=== PATIENT | male | born 1985 | race Caucasian/White ===

== ENCOUNTER 2018-12-18 17:38 | Inpatient (IN) | payer BC ==
[2018-12-18] MEDS ORDERED: Ertapenem 1 GM in Sodium Chloride 0.9% 50 ML IV STA (19:51)
--- NOTE | 2018-12-18 19:51 | EDM.PDOC ---
ED HPI GENERAL MEDICAL PROBLEM - General Chief Complaint: Gastrointestinal Problem Stated Complaint: SKIN COMPLAINT/BUTTOCKS Time Seen by Provider: 12/18/18 19:01 Source of Information: Reports: Patient History Limitations: Reports: No Limitations - History of Present Illness INITIAL COMMENTS - FREE TEXT/NARRATIVE: Mr. Lopez is a most pleasant 33-year-old man with no significant past medical history, who states that he developed watery diarrhea, left-sided abdominal pain , and right flank pain about 7 weeks ago, ending about 4 weeks ago. He saw his PCP who ordered a CT scan of his abdomen and pelvis, along with blood work, stool studies, and urine studies. According to the patient, everything returned negative - there was no diverticulitis - except for the patient's WBC count, which returned at 40,000, however, the patient had received a steroid injection for back pain not long prior. The patient was started on antibiotics, and his symptoms resolved. A subsequent the WBC count was 14,000. At around that time, 3 weeks ago, the patient noticed a painless, nontender lump in his rectum. He states that he saw his PCP within a day or so of noticing the lump. He is not sure what the diagnosis was, but he states that his PCP told him that it would go away. About 4 days ago, the lump became painful and tender. The patient has not noticed any blood or pus in his underwear. He has not had a fever or chills, although he has had occasional body aches. He states that he saw his PCP again this past 12/15/2018. He states that his PCP referred him to Dr. Arreola for a colonoscopy or sigmoidoscopy. The patient states he has an appointment to see Dr. Arreola on 01/06/2019. The patient states that his pain has become progressively worse, to the point that he simply cannot wait until 01/06/2019, therefore he came to the ED. The patient has not previously undergone an EGD or colonoscopy. The patient's last solid food was around noon today. The patient's PCP is Dr. Valerio Lopez. Anus Pain Score (Numeric/FACES): 5 - Related Data Allergies Allergy/AdvReac Type Severity Reaction Status Date / Time No Known Allergies Allergy Verified 12/18/18 18:20 Home Meds: Home Meds . [No Known Home Meds] 12/18/18 [History] Past Medical History Genitourinary History: Reports: Urinary Incontinence (Spastic bladder), Other ( See Below) (Hemorrhoids) Endocrine/Metabolic History: Reports: Obesity/BMI 30+ - Past Surgical History HEENT Surgical History: Reports: Myringotomy w Tube(s) (bilateral), Oral Surgery (wisdom teeth extractions) GI Surgical History: Reports: Hernia, Inguinal (right), Other (See Below) ( Hemorrhoid banding/removal) Musculoskeletal Surgical History: Reports: ORIF (Left hand. 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 ED EXAM, GI/ABD - Physical Exam Exam: See Below Exam Limited By: No Limitations General Appearance: Alert, WD/WN, No Apparent Distress Eyes: Bilateral: Normal Appearance, EOMI Ears: Normal External Exam, Hearing Grossly Normal Nose: Normal Inspection Throat/Mouth: Normal Inspection, Normal Lips, Normal Voice, No Airway Compromise Head: Atraumatic, Normocephalic Neck: Normal Inspection, Full Range of Motion Respiratory/Chest: No Respiratory Distress, No Accessory Muscle Use, Rhonchi, Wheezing (faint expiratory) Cardiovascular: Normal Peripheral Pulses, Regular Rate, Rhythm, No Gallop, No JVD, No Murmur, No Rub GI/Abdominal Exam: Normal Bowel Sounds, Soft, No Organomegaly, No Distention, No Abnormal Bruit, No Mass, Tender (Mild, primarily in the left lower quadrant, but also on the right lower quadrant and epigastric area) (Male) Exam: Deferred Rectal (Males) Exam: Perirectal Abscess (left) Back Exam: Normal Inspection, Full Range of Motion. No: CVA Tenderness (L), CVA Tenderness (R) Extremities: Normal Inspection, Normal Range of Motion, No Pedal Edema, Normal Capillary Refill Neurological: Alert, Oriented, Normal Cognition, No Motor/Sensory Deficits Psychiatric: Normal Affect Skin Exam: Warm, Dry, Intact, Normal Color, No Rash Course - Vital Signs Last Recorded V/S: Last Vital Signs Temp 36.9 C 12/18/18 18:16 Pulse 97 12/18/18 18:16 Resp 18 12/18/18 18:16 BP 166/92 H 12/18/18 18:16 Pulse Ox 100 12/18/18 18:16 - Orders/Labs/Meds Orders: Active Orders 24 hr Category Date Time Status Lactated Ringers [Ringers, Lactated] 1,000 ml Med 12/18/18 20:00 Active IV ASDIRECTED Medication Orders Lactated Ringer's (Ringers, Lactated) 1,000 mls @ 100 mls/hr IV ASDIRECTED SYED Last Admin: 12/18/18 20:45 Dose: 100 mls/hr Labs: Laboratory Tests 12/18/18 12/18/18 Range/Units 19:56 19:56 WBC 14.06 H (4.23-9.07) K/mm3 RBC 4.92 (4.63-6.08) M/mm3 Hgb 15.0 (13.7-17.5) gm/dl Hct 43.9 (40.1-51.0) % MCV 89.2 (79.0-92.2) fl MCH 30.5 (25.7-32.2) pg MCHC 34.2 (32.2-35.5) g/dl RDW Std Deviation 41.9 (35.1-43.9) fL Plt Count 244 (163-337) K/mm3 MPV 10.1 (9.4-12.3) fl Neutrophils % (Manual) 72 H (40-60) % Band Neutrophils % 0 (0-10) % Lymphocytes % (Manual) 19 L (20-40) % Atypical Lymphs % 0 % Monocytes % (Manual) 5 (2-10) % Eosinophils % (Manual) 4 (0.8-7.0) % Basophils % (Manual) 0 L (0.2-1.2) Platelet Estimate Adequate RBC Morph Comment Normal Sodium 139 (136-145) mEq/L Potassium 3.9 (3.5-5.1) mEq/L Chloride 105 (98-107) mEq/L Carbon Dioxide 25 (21-32) mEq/L Anion Gap 12.9 (5-15) BUN 17 (7-18) mg/dL Creatinine 0.9 (0.7-1.3) mg/dL Est Cr Clr Drug Dosing 127.33 mL/min Estimated GFR (MDRD) > 60 (>60) mL/min BUN/Creatinine Ratio 18.9 H (14-18) Glucose 87 (74-106) mg/dL Calcium 9.2 (8.5-10.1) mg/dL Total Bilirubin 0.4 (0.2-1.0) mg/dL AST 11 L (15-37) U/L ALT 30 (16-63) U/L Alkaline Phosphatase 82 (46-116) U/L Total Protein 7.4 (6.4-8.2) g/dl Albumin 4.0 (3.4-5.0) g/dl Globulin 3.4 gm/dL Albumin/Globulin Ratio 1.2 (1-2) Meds: Medications Generic Name Dose Route Start Last Admin Trade Name Felix PRN Reason Stop Dose Admin Lactated Ringer's 1,000 mls @ 100 mls/hr 12/18/18 20:00 12/18/18 20:45 Ringers, Lactated IV 100 mls/hr ASDIRECTED SYED Administration Discontinued Medications Generic Name Dose Route Start Last Admin Trade Name Felix PRN Reason Stop Dose Admin Hydromorphone HCl 0.5 mg 12/18/18 20:01 12/18/18 20:43 Dilaudid IVPUSH 12/18/18 20:02 0.5 mg ONETIME ONE Administration Ertapenem 1 gm/ Sodium 50 mls @ 100 mls/hr 12/18/18 19:51 12/18/18 20:40 Chloride IV 12/18/18 20:20 100 mls/hr ONETIME STA Administration Nicotine 21 mg 12/18/18 19:58 12/18/18 20:44 Habitrol TRDERM 12/18/18 19:59 21 mg ONETIME ONE Administration Ondansetron HCl 4 mg 12/18/18 20:01 12/18/18 20:40 Zofran IVPUSH 12/18/18 20:02 4 mg ONETIME ONE Administration - Re-Assessments/Exams Free Text/Narrative Re-Assessment/Exam: 12/18/18 19:50 Clinically, the patient is suffering from a left perirectal abscess. Case discussed with Dr. Velasquez at 19:33 - he came by the ED and evaluated the patient, and agrees. The patient will be admitted overnight and go to the OR in the AM for drainage and exploration. He will receive 1 g Invanz here in the ED, along with some IV fluid. I will order some pain medication and antinausea medicine. I will order a preop CBC and CMP. The patient may eat up until 10:00 tonight. 12/18/18 20:53 The patient's CBC is remarkable for a WBC count elevated at 14.06, but with 0% bandemia. The remainder of his CBC is unremarkable. His CMP is unremarkable. Departure - Departure Time of Disposition: 20:01 Disposition: Admitted As Inpatient 66 Condition: Good Clinical Impression: Perirectal abscess - Discharge Information *PRESCRIPTION DRUG MONITORING PROGRAM REVIEWED*: Not Applicable *COPY OF PRESCRIPTION DRUG MONITORING REPORT IN PATIENT [place]: Not Applicable - My Orders Last 24 Hours: My Active Orders 12/18/18 20:00 Lactated Ringers [Ringers, Lactated] 1,000 ml IV ASDIRECTED - Assessment/Plan Last 24 Hours: My Active Orders 12/18/18 20:00 Lactated Ringers [Ringers, Lactated] 1,000 ml IV ASDIRECTED
[2018-12-18] MEDS ORDERED: Nicotine 21 MG/24 Hr Patch TRDERM ONE (19:58)
[2018-12-18] MEDS ORDERED: Lactated Ringers 1,000 ML IV SCH (20:00)
[2018-12-18] MEDS ORDERED: HYDROmorphone 0.5 MG/0.5 ML Syringe IVPUSH ONE (20:01)
[2018-12-18] MEDS ORDERED: Ondansetron 4 MG/2 ML SDV IVPUSH ONE (20:01)
[2018-12-18] MEDS ORDERED: Ondansetron 4 MG/2 ML SDV IVPUSH PRN (22:01)
[2018-12-18] MEDS: HYDROmorphone 0.5 MG/0.5 ML Syringe IVPUSH PRN (22:57)
[2018-12-19] MEDS: HYDROmorphone 0.5 MG/0.5 ML Syringe IVPUSH PRN ×2 (02:24→05:15)
[2018-12-19] MEDS ORDERED: Ketorolac 30 MG/ML SDV ONE (04:03)
[2018-12-19] MEDS ORDERED: Ondansetron 4 MG/2 ML SDV ONE (04:03)
[2018-12-19] MEDS ORDERED: Propofol 200 MG/20 ML SDV ONE ×2 (04:04→06:55)
[2018-12-19] MEDS ORDERED: fentaNYL 100 MCG/2 ML SDV ONE ×2 (04:04→06:54)
[2018-12-19] MEDS ORDERED: Lactated Ringers 1,000 ML ONE (04:04)
[2018-12-19] MEDS ORDERED: Midazolam 1 MG/ML 2 ML SDV ONE (04:04)
[2018-12-19] MEDS ORDERED: Lidocaine 1% 4 ML ONE (04:05)
[2018-12-19] MEDS ORDERED: Albuterol 0.083% 2.5 MG/3 ML Neb Soln NEB ONE (05:00)
[2018-12-19] MEDS ORDERED: Lidocaine 1% with EPINEPHrine 1:100,000 20 ML MDV ONE (05:48)
--- NOTE | 2018-12-19 06:18 | PCM.CONS ---
H&P History of Present Illness - General Date of Service: 12/18/18 Admit Problem/Dx: Admission Diagnosis/Problem Admission Diagnosis/Problem Perirectal abscess Source of Information: Patient History Limitations: Reports: No Limitations - History of Present Illness Initial Comments - Free Text/Narative: The patient had a small lump in the perianal area for 2 months. This was initially non-tender. Over the past 2 weeks, it has become progressively tender with sharp pain. Pain is worse with movement, bowel movement, sitting. Pain is better with immobilization. Pain is located in the perianal area and not radiating. Patient denies any fevers or chills. He presented to the ED because he could not stand the pain anymore. Onset of Symptoms: Reports: Gradual Duration of Symptoms: Reports: Week(s): (6 weeks), Getting Worse Location: Reports: Other (perianal) Quality: Reports: Ache, Sharp Severity: Severe Improves with: Reports: Immobilization Worsens with: Reports: Other (bowel movement) Associated Symptoms: Reports: Malaise Anus Pain Score (Numeric/FACES): 4 - Related Data Allergies/Adverse Reactions: Allergies Allergy/AdvReac Type Severity Reaction Status Date / Time No Known Allergies Allergy Verified 12/18/18 18:20 Home Medications: Home Meds Cinnamon Bark [Cinnamon] 1 tab PO DAILY 12/18/18 [History] Desmopressin 0.2 mg PO DAILY 12/18/18 [History] Ibuprofen [Advil] 200 mg PO QID PRN 12/18/18 [History] L.acidoph,Paracasei, B.lactis [Probiotic] 1 cap PO DAILY 12/18/18 [History] Leg Cramps. 1 tab PO DAILY 12/18/18 [History] Multivitamin [Multivitamins] 1 tab PO DAILY 12/18/18 [History] Past Medical History Respiratory History: Reports: Other (See Below) Other Respiratory History: always has mucus Gastrointestinal History: Reports: Hemorrhoids Genitourinary History: Reports: Urinary Incontinence, Other (See Below) Other Genitourinary History: takes desmopress Musculoskeletal History: Reports: Fracture Endocrine/Metabolic History: Reports: Obesity/BMI 30+ Dermatologic History: Reports: Other (See Below) Other Dermatologic History: hx. of cysts - Infectious Disease History Infectious Disease History: Reports: Chicken Pox - Past Surgical History HEENT Surgical History: Reports: Myringotomy w Tube(s), Oral Surgery GI Surgical History: Reports: Hernia, Inguinal Male Surgical History: Reports: None Endocrine Surgical History: Reports: None Musculoskeletal Surgical History: Reports: ORIF Social & Family History - Family History Family Medical History: Noncontributory - Tobacco Use Smoking Status *Q: Current Every Day Smoker Years of Tobacco use: 15 Packs/Tins Daily: 1 Second Hand Smoke Exposure: No - Caffeine Use Caffeine Use: Reports: Soda - Alcohol Use Days Per Week of Alcohol Use: 1 Number of Drinks Per Day: 0 Total Drinks Per Week: 0 Date of Last Drink: 12/15/18 Time of Last Drink: 20:00 - Recreational Drug Use Recreational Drug Use: No Drug Use in Last 12 Months: Yes Recreational Drug Type: Reports: Cocaine (last smoked @ 19 yo), Marijuana/ Hashish (smoked daily), Methamphetamine (last smoked @ 19 yo), Psilocybin ( Mushrooms) (last ate @ 19 yo), Other (see below) (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) - Living Situation & Occupation Living situation: Reports: , with Spouse, with Family (1 child) 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) H&P Review of Systems - Review of Systems: Review Of Systems: See Below General: Reports: Malaise HEENT: Reports: No Symptoms Pulmonary: Reports: No Symptoms Cardiovascular: Reports: No Symptoms Gastrointestinal: Reports: Other (Perianal pain) Genitourinary: Reports: No Symptoms Musculoskeletal: Reports: Back Pain Skin: Reports: No Symptoms Psychiatric: Reports: No Symptoms Neurological: Reports: No Symptoms Hematologic/Lymphatic: Reports: No Symptoms Immunologic: Reports: No Symptoms Exam - Exam Exam: See Below - Vital Signs Vital Signs: Last Vital Signs Temp 99.0 F 12/19/18 02:28 Pulse 78 12/19/18 02:28 Resp 15 12/19/18 02:28 BP 126/81 12/19/18 02:28 Pulse Ox 100 12/19/18 05:18 Weight: 117.526 kg - Exam General: Alert, Oriented, Cooperative, Moderate Distress HEENT: Conjunctiva Clear Lungs: Clear to Auscultation, Normal Respiratory Effort Cardiovascular: Regular Rate, Regular Rhythm GI/Abdominal Exam: Soft, Non-Tender, No Organomegaly, No Distention, No Mass Rectal (Males) Exam: Perirectal Abscess (Left posterolateral perianal aspect. This are is warm, very tender, fluctuant. No drainage noted) - Patient Data Lab Results Last 24 hrs: Laboratory Results - last 24 hr 12/18/18 12/18/18 Range/Units 19:56 19:56 WBC 14.06 H (4.23-9.07) K/mm3 RBC 4.92 (4.63-6.08) M/mm3 Hgb 15.0 (13.7-17.5) gm/dl Hct 43.9 (40.1-51.0) % MCV 89.2 (79.0-92.2) fl MCH 30.5 (25.7-32.2) pg MCHC 34.2 (32.2-35.5) g/dl RDW Std Deviation 41.9 (35.1-43.9) fL Plt Count 244 (163-337) K/mm3 MPV 10.1 (9.4-12.3) fl Neutrophils % (Manual) 72 H (40-60) % Band Neutrophils % 0 (0-10) % Lymphocytes % (Manual) 19 L (20-40) % Atypical Lymphs % 0 % Monocytes % (Manual) 5 (2-10) % Eosinophils % (Manual) 4 (0.8-7.0) % Basophils % (Manual) 0 L (0.2-1.2) Platelet Estimate Adequate RBC Morph Comment Normal Sodium 139 (136-145) mEq/L Potassium 3.9 (3.5-5.1) mEq/L Chloride 105 (98-107) mEq/L Carbon Dioxide 25 (21-32) mEq/L Anion Gap 12.9 (5-15) BUN 17 (7-18) mg/dL Creatinine 0.9 (0.7-1.3) mg/dL Est Cr Clr Drug Dosing 127.33 mL/min Estimated GFR (MDRD) > 60 (>60) mL/min BUN/Creatinine Ratio 18.9 H (14-18) Glucose 87 (74-106) mg/dL Calcium 9.2 (8.5-10.1) mg/dL Total Bilirubin 0.4 (0.2-1.0) mg/dL AST 11 L (15-37) U/L ALT 30 (16-63) U/L Alkaline Phosphatase 82 (46-116) U/L Total Protein 7.4 (6.4-8.2) g/dl Albumin 4.0 (3.4-5.0) g/dl Globulin 3.4 gm/dL Albumin/Globulin Ratio 1.2 (1-2) Result Diagrams: 12/18/18 19:56 12/18/18 19:56 Consult PN Assessment/Plan Procedures: Procedures POLYSOM 6/> YRS 4/> WEI (02/15/14) Problem List Initiated/Reviewed/Updated: No My Orders Last 24 Hours: My Active Orders 12/18/18 21:57 Resuscitation Status Routine 12/18/18 22:01 Up ad Carolyn [RC] DAILY HYDROmorphone [Dilaudid] 0.5 mg IVPUSH Q2H PRN Ondansetron [Zofran] 4 mg IVPUSH Q6HR PRN 12/19/18 05:40 CBC WITH AUTO DIFF [HEME] Routine CMP [COMPREHENSIVE METABOLIC PN,CMP] [CHEM] Routine 12/19/18 06:30 Schedule Procedure [COMM] Timed Plan: Patient had perirectal/perianal abscess. We will proceed with Anorectal exam under anesthesia with Incision and drainage of the abscess. I discussed with the patient the risks, benefits and alternatives to the procedure. Patient agrees to proceed and informed consent was obtained.
--- NOTE | 2018-12-19 06:28 | PCM.PREANE ---
Preanesthetic Assessment - Anesthesia/Transfusion/Family Hx Anesthesia History: Prior Anesthesia Without Reaction Family History of Anesthesia Reaction: No Transfusion History: No Prior Transfusion(s) - Review of Systems General: No Symptoms Pulmonary: Cough (Smoker 1ppd, productive cough (brown phlem) at times. ) Cardiovascular: No Symptoms Gastrointestinal: No Symptoms Neurological: Pre-Existing Deficit (Back pain with steroid injection ) Other: Reports: None (Obesity BMI 35) - Physical Assessment NPO Status Date: 12/18/18 NPO Status Time: 22:00 Vital Signs: Last Vital Signs Temp 37.2 C 12/19/18 02:28 Pulse 78 12/19/18 02:28 Resp 15 12/19/18 02:28 BP 126/81 12/19/18 02:28 Pulse Ox 100 12/19/18 05:18 Height: 1.83 m Weight: 117.526 kg ASA Class: 2 Mental Status: Alert & Oriented x3 Airway Class: Mallampati = 2 Dentition: Reports: Normal Dentition Thyro-Mental Finger Breadths: 3 Mouth Opening Finger Breadths: 3 ROM/Head Extension: Full Lungs: Clear to Auscultation, Normal Respiratory Effort - Lab Values: Laboratory Last Values WBC 13.82 K/mm3 (4.23-9.07) H 12/19/18 05:40 RBC 4.84 M/mm3 (4.63-6.08) 12/19/18 05:40 Hgb 14.7 gm/dl (13.7-17.5) 12/19/18 05:40 Hct 43.3 % (40.1-51.0) 12/19/18 05:40 MCV 89.5 fl (79.0-92.2) 12/19/18 05:40 MCH 30.4 pg (25.7-32.2) 12/19/18 05:40 MCHC 33.9 g/dl (32.2-35.5) 12/19/18 05:40 RDW Std Deviation 41.9 fL (35.1-43.9) 12/19/18 05:40 Plt Count 102 K/mm3 (163-337) L D 12/19/18 05:40 MPV 11.5 fl (9.4-12.3) 12/19/18 05:40 Neut % (Auto) 72.5 % (34.0-67.9) H 12/19/18 05:40 Lymph % (Auto) 13.1 % (21.8-53.1) L 12/19/18 05:40 [place] % (Auto) 12.4 % (5.3-12.2) H 12/19/18 05:40 Eos % (Auto) 1.5 (0.8-7.0) 12/19/18 05:40 Baso % (Auto) 0.1 % (0.1-1.2) 12/19/18 05:40 Neut # (Auto) 10.01 K/mm3 (1.78-5.38) H 12/19/18 05:40 Lymph # (Auto) 1.81 K/mm3 (1.32-3.57) 12/19/18 05:40 [place] # (Auto) 1.72 K/mm3 (0.30-0.82) H 12/19/18 05:40 Eos # (Auto) 0.21 K/mm3 (0.04-0.54) 12/19/18 05:40 Baso # (Auto) 0.02 K/mm3 (0.01-0.08) 12/19/18 05:40 Neutrophils % (Manual) 72 % (40-60) H 12/18/18 19:56 Band Neutrophils % 0 % (0-10) 12/18/18 19:56 Lymphocytes % (Manual) 19 % (20-40) L 12/18/18 19:56 Atypical Lymphs % 0 % 12/18/18 19:56 Monocytes % (Manual) 5 % (2-10) 12/18/18 19:56 Eosinophils % (Manual) 4 % (0.8-7.0) 12/18/18 19:56 Basophils % (Manual) 0 (0.2-1.2) L 12/18/18 19:56 Platelet Estimate Adequate 12/18/18 19:56 RBC Morph Comment Normal 12/18/18 19:56 Sodium 139 mEq/L (136-145) 12/18/18 19:56 Potassium 3.9 mEq/L (3.5-5.1) 12/18/18 19:56 Chloride 105 mEq/L (98-107) 12/18/18 19:56 Carbon Dioxide 25 mEq/L (21-32) 12/18/18 19:56 Anion Gap 12.9 (5-15) 12/18/18 19:56 BUN 17 mg/dL (7-18) 12/18/18 19:56 Creatinine 0.9 mg/dL (0.7-1.3) 12/18/18 19:56 Est Cr Clr Drug Dosing 127.33 mL/min 12/18/18 19:56 Estimated GFR (MDRD) > 60 mL/min (>60) 12/18/18 19:56 BUN/Creatinine Ratio 18.9 (14-18) H 12/18/18 19:56 Glucose 87 mg/dL (74-106) 12/18/18 19:56 Calcium 9.2 mg/dL (8.5-10.1) 12/18/18 19:56 Total Bilirubin 0.4 mg/dL (0.2-1.0) 12/18/18 19:56 AST 11 U/L (15-37) L 12/18/18 19:56 ALT 30 U/L (16-63) 12/18/18 19:56 Alkaline Phosphatase 82 U/L (46-116) 12/18/18 19:56 Total Protein 7.4 g/dl (6.4-8.2) 12/18/18 19:56 Albumin 4.0 g/dl (3.4-5.0) 12/18/18 19:56 Globulin 3.4 gm/dL 12/18/18 19:56 Albumin/Globulin Ratio 1.2 (1-2) 12/18/18 19:56 - Allergies Allergies/Adverse Reactions: Allergies Allergy/AdvReac Type Severity Reaction Status Date / Time No Known Allergies Allergy Verified 12/18/18 18:20 - Acknowledgements Anesthesia Type Planned: General Anesthesia Pt an Appropriate Candidate for the Planned Anesthesia: Yes Alternatives and Risks of Anesthesia Discussed w Pt/Guardian: Yes Pt/Guardian Understands and Agrees with Anesthesia Plan: Yes PreAnesthesia Questionnaire Respiratory History: Reports: Other (See Below) Other Respiratory History: always has mucus Gastrointestinal History: Reports: Hemorrhoids Genitourinary History: Reports: Urinary Incontinence, Other (See Below) Other Genitourinary History: takes desmopress Musculoskeletal History: Reports: Fracture Endocrine/Metabolic History: Reports: Obesity/BMI 30+ Dermatologic History: Reports: Other (See Below) Other Dermatologic History: hx. of cysts - Infectious Disease History Infectious Disease History: Reports: Chicken Pox - Past Surgical History HEENT Surgical History: Reports: Myringotomy w Tube(s), Oral Surgery GI Surgical History: Reports: Hernia, Inguinal Male Surgical History: Reports: None Endocrine Surgical History: Reports: None Musculoskeletal Surgical History: Reports: ORIF - SUBSTANCE USE Smoking Status *Q: Current Every Day Smoker Tobacco Use Within Last Twelve Months: Cigarettes Second Hand Smoke Exposure: No Days Per Week of Alcohol Use: 1 Number of Drinks Per Day: 0 Total Drinks Per Week: 0 Date of Last Drink: 12/15/18 Time of Last Drink: 20:00 Recreational Drug Use History: No Recreational Drug Type: Reports: Cocaine (last smoked @ 19 yo), Marijuana/ Hashish (smoked daily), Methamphetamine (last smoked @ 19 yo), Psilocybin ( Mushrooms) (last ate @ 19 yo), Other (see below) (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 1 tab PO DAILY 12/18/18 [History] Multivitamin [Multivitamins] 1 tab PO DAILY 12/18/18 [History] - CURRENT (IN HOUSE) MEDS Current Meds: Current Medications Hydromorphone HCl (Dilaudid) 0.5 mg IVPUSH Q2H PRN PRN Reason: Pain Last Admin: 12/19/18 05:15 Dose: 0.5 mg Lactated Ringer's (Ringers, Lactated) 1,000 mls @ 100 mls/hr IV ASDIRECTED SYED Last Admin: 12/18/18 20:45 Dose: 100 mls/hr Ondansetron HCl (Zofran) 4 mg IVPUSH Q6HR PRN PRN Reason: Nausea/Vomiting Discontinued Medications Albuterol (Proventil Neb Soln) 2.5 mg NEB ONETIME ONE Stop: 12/19/18 05:01 Last Admin: 12/19/18 05:17 Dose: 2.5 mg Fentanyl (Sublimaze) Confirm Administered Dose 100 mcg .ROUTE .STK-MED ONE Stop: 12/19/18 04:05 Hydromorphone HCl (Dilaudid) 0.5 mg IVPUSH ONETIME ONE Stop: 12/18/18 20:02 Last Admin: 12/18/18 20:43 Dose: 0.5 mg Ertapenem 1 gm/ Sodium (Chloride) 50 mls @ 100 mls/hr IV ONETIME STA Stop: 12/18/18 20:20 Last Admin: 12/18/18 20:40 Dose: 100 mls/hr Lactated Ringer's (Ringers, Lactated) Confirm Administered Dose 1,000 mls @ as directed .ROUTE .STK-MED ONE Stop: 12/19/18 04:05 Lidocaine HCl (Xylocaine-Mpf 1%) Confirm Administered Dose 4 mls @ as directed .ROUTE .STK-MED ONE Stop: 12/19/18 04:06 Ketorolac Tromethamine (Toradol) Confirm Administered Dose 30 mg .ROUTE .STK- MED ONE Stop: 12/19/18 04:04 Lidocaine/Epinephrine (Xylocaine 1% With Epinephrine 1:100,000) Confirm Administered Dose 40 ml .ROUTE .STK-MED ONE Stop: 12/19/18 05:49 Midazolam HCl (Versed 1 Mg/Ml) Confirm Administered Dose 2 mg .ROUTE .STK-MED ONE Stop: 12/19/18 04:05 Nicotine (Habitrol) 21 mg TRDERM ONETIME ONE Stop: 12/18/18 19:59 Last Admin: 12/18/18 20:44 Dose: 21 mg Ondansetron HCl (Zofran) 4 mg IVPUSH ONETIME ONE Stop: 12/18/18 20:02 Last Admin: 12/18/18 20:40 Dose: 4 mg Ondansetron HCl (Zofran) Confirm Administered Dose 4 mg .ROUTE .STK-MED ONE Stop: 12/19/18 04:04 Propofol (Diprivan 20 Ml) Confirm Administered Dose 400 mg .ROUTE .STK-MED ONE Stop: 12/19/18 04:05
[2018-12-19] MEDS ORDERED: HYDROmorphone 0.5 MG/0.5 ML Syringe IVPUSH PRN ×2 (06:31→07:25)
[2018-12-19] MEDS ORDERED: fentaNYL 100 MCG/2 ML SDV IVPUSH PRN ×2 (06:31→07:25)
[2018-12-19] MEDS ORDERED: diphenhydrAMINE 50 MG/ML SDV IVPUSH PRN (06:31)
[2018-12-19] MEDS ORDERED: Succinylcholine/Normal Saline 100 MG/5 ML Syringe ONE (06:41)
[2018-12-19] MEDS ORDERED: Rocuronium 50 MG/5 ML Vial ONE (06:49)
[2018-12-19] MEDS ORDERED: Scopolamine 1.5 MG Transdermal Patch TOP ONE (06:53)
[2018-12-19] MEDS ORDERED: Dexamethasone 4 MG/ML 5 ML MDV ONE (06:57)
--- NOTE | 2018-12-19 07:24 | PCM.POSTAN ---
POST ANESTHESIA ASSESSMENT - MENTAL STATUS Mental Status: Alert - VITAL SIGNS Vital Signs: Last Vital Signs Temp 37.2 C 12/19/18 02:28 Pulse 78 12/19/18 02:28 Resp 15 12/19/18 02:28 BP 126/81 12/19/18 02:28 Pulse Ox 100 12/19/18 05:18 - RESPIRATORY Respiratory Status: Respiratory Rate WNL, Airway Patent, O2 Saturation Stable, Supplemental Oxygen - CARDIOVASCULAR CV Status: Pulse Rate WNL, Blood Pressure Stable - GASTROINTESTINAL GI Status: No Symptoms - PAIN Pain Score: 0 - POST OP HYDRATION Hydration Status: Adequate & Stable
--- NOTE | 2018-12-19 07:58 | OR ---
DATE OF OPERATION: 12/19/2018 SURGEON: Elis Velasquez MD PREOPERATIVE DIAGNOSIS: Perianal abscess. POSTOPERATIVE DIAGNOSIS: Perianal abscess. OPERATION PERFORMED: Anorectal exam under anesthesia, incision and drainage of the perianal abscess. ANESTHESIA: General endotracheal. ESTIMATED BLOOD LOSS: Minimal. ESTIMATED FLUIDS: Minimal. URINE OUTPUT: Not measured. INDICATIONS AND CONSENT: The patient is a 33-year-old male who presented to the emergency department with severe perianal pain. The pain has been present for over a week. He had no other systemic signs of infection including fevers, chills. The patient was evaluated in the emergency department and I was consulted to evaluate the patient for the concern for perirectal abscess, which was confirmed on my exam. The patient was offered surgical drainage. Risks, benefits, and alternatives were discussed with this patient and the patient agreed to proceed with the procedure. Informed consent was obtained. DESCRIPTION OF PROCEDURE: The patient was taken to the operating room, placed on operating room table in supine position. Following induction of general endotracheal anesthesia, the patient's position was changed to lithotomy with Chris stirrups. Then, the perianal area was prepped and draped in the usual sterile fashion. Then, a formal time-out was performed. The patient already had received Invanz at the time of admission, therefore no additional preop antibiotics were indicated. Anorectal exam was performed by first doing a digital rectal exam. The sphincter appeared to be intact and there were no masses or abnormalities. There was a clear fluctuant mass to the left posterolateral aspect of the anal opening. It seemed to be intersphincteric abscess and this was confirmed on a speculum exam. The mucosa appeared to be normal, but the only abnormality was the abscess. The area of most fluctuance was located with a needle aspiration and then an incision was made over this area, draining copious amount of purulent material. Some of this was taken for cultures. The area was bluntly explored to break all loculations and was irrigated with copious amount of normal saline to make sure that everything is clean and packed with quarter-inch iodoform gauze. There was no significant bleeding from the area of incision. This marked the end of the procedure. At the end of procedure, all instruments, sharps, and sponges were counted and found to be correct x2. The patient was awoken from anesthesia, extubated, and taken to the PACU in stable condition. The plan is for the patient to return home today. The packing can be removed in 6 to 24 hours. No additional packing was going to be needed. The patient to continue to do sitz baths, stool softeners, and pain control. The patient will return to clinic to see me as needed for postop check. FLEX /[id number]
--- NOTE | 2018-12-19 08:08 | PCM48HPAN ---
Post Anesthesia Note - EVALUATION WITHIN 48HRS OF ANESTHETIC Vital Signs in Normal Range: Yes Patient Participated in Evaluation: Yes Respiratory Function Stable: Yes Airway Patent: Yes Cardiovascular Function Stable: Yes Hydration Status Stable: Yes Pain Control Satisfactory: Yes Nausea and Vomiting Control Satisfactory: Yes Mental Status Recovered: Yes Vital Signs: Last Vital Signs Temp 36.4 C 12/19/18 08:01 Pulse 76 12/19/18 08:01 Resp 16 12/19/18 08:01 BP 140/72 12/19/18 08:01 Pulse Ox 92 L 12/19/18 08:01
[2018-12-19] MEDS ORDERED: Acetaminophen 325 MG Tab PO PRN (08:38)
== END 2018-12-19 08:45 | disposition home or self-care (01) | DRG 226 ==
LOC: JD.ED 17:38 → JD.MS 20:20
PROVIDERS: ADMIT Surgery; ATTEND Surgery
PROC: 0D9Q0ZZ Drainage of Anus, Open Approach (ICD-10-PCS; principal; 2018-12-19)
DX: K61.0 Anal abscess (principal); K61.1 Rectal abscess; E66.9 Obesity, unspecified; F17.210 Nicotine dependence, cigarettes, uncomplicated; R32 Unspecified urinary incontinence; Z79.899 Other long term (current) drug therapy; Z98.890 Other specified postprocedural states; Z68.35 Body mass index [BMI] 35.0-35.9, adult
CPT/HCPCS: 00902; 36415; 80053; 85007; 85025; 85027; 87075; 87205; 94640; 99284; A9270-GY; J0330; J1100; J1170; J1335; J1885; J2001; J2250; J2405; J2704; J3010; J7050; J7120

== ENCOUNTER → 2020-08-15 | Day surgery (SDC) | payer BC ==
[~2020-08-15] MED LIST: Albuterol 0.083% 2.5 MG/3 ML Neb Soln NEB PRN; Albuterol 6.7 GM Inhaler INH ONE; Bupivacaine 0.5%/EPINEPHrine 1:200,000 50 ML MDV ONE; Dexamethasone 4 MG/ML SDV ONE; Glycopyrrolate 0.2 MG/ML SDV ONE; HYDROmorphone 0.5 MG/0.5 ML Syringe IVPUSH PRN; HYDROmorphone 0.5 MG/0.5 ML Syringe ONE; Ketorolac 30 MG/ML SDV ONE; Lactated Ringers 1,000 ML IV SCH; Lactated Ringers 1,000 ML ONE; Lidocaine 1% 4 ML ONE; Lidocaine 1%/Sod Bicarbonate in NS 8.4% 1 ML Syringe IDERM PRN; Midazolam 1 MG/ML 2 ML SDV ONE; Ondansetron 4 MG/2 ML SDV IVPUSH PRN; Ondansetron 4 MG/2 ML SDV ONE; Propofol 200 MG/20 ML SDV ONE; Rocuronium 50 MG/5 ML Vial ONE; Scopolamine 1.5 MG Transdermal Patch TRDERM PRN; Sodium Chloride 0.9% 10 ML Syringe FLUSH PRN; ceFAZolin 1 GM Vial ONE; fentaNYL 100 MCG/2 ML SDV IVPUSH PRN; fentaNYL 100 MCG/2 ML SDV ONE; fentaNYL 250 MCG/5 ML SDV ONE
--- NOTE | 2020-08-15 08:43 | PCM.PREANE ---
Preanesthetic Assessment - Anesthesia/Transfusion/Family Hx Anesthesia History: Prior Anesthesia Without Reaction Family History of Anesthesia Reaction: No Transfusion History: No Prior Transfusion(s) Intubation History: Unknown - Review of Systems General: No Symptoms Pulmonary: No Symptoms Cardiovascular: No Symptoms Gastrointestinal: No Symptoms Neurological: No Symptoms Other: Reports: None - Physical Assessment NPO Status Date: 08/15/20 NPO Status Time: 22:00 ASA Class: 2 Mental Status: Alert & Oriented x3 Airway Class: Mallampati = 2 Dentition: Reports: Broken Tooth/Teeth ((L) front ) Thyro-Mental Finger Breadths: 3 Mouth Opening Finger Breadths: 3 ROM/Head Extension: Full Lungs: Clear to Auscultation, Normal Respiratory Effort Cardiovascular: Regular Rate, Regular Rhythm - Allergies Allergies/Adverse Reactions: Allergies Allergy/AdvReac Type Severity Reaction Status Date / Time No Known Allergies Allergy Verified 08/12/20 10:14 - Acknowledgements Anesthesia Type Planned: General Anesthesia Pt an Appropriate Candidate for the Planned Anesthesia: Yes Alternatives and Risks of Anesthesia Discussed w Pt/Guardian: Yes Pt/Guardian Understands and Agrees with Anesthesia Plan: Yes PreAnesthesia Questionnaire HEENT History: Reports: Otitis Media Cardiovascular History: Reports: None, SOB on Exertion Respiratory History: Reports: Other (See Below) Other Respiratory History: always has mucus, uses inhaler for seasonal allergies and sinus infections Gastrointestinal History: Reports: Colon Polyp, Hemorrhoids Genitourinary History: Reports: Urinary Incontinence, Other (See Below) Other Genitourinary History: enuresis EXAMINATION SUPERVISOR History: Reports: None Musculoskeletal History: Reports: Fracture Neurological History: Reports: None Psychiatric History: Reports: None Endocrine/Metabolic History: Reports: Obesity/BMI 30+ Hematologic History: Reports: None Immunologic History: Reports: None Oncologic (Cancer) History: Reports: None Dermatologic History: Reports: Other (See Below) Other Dermatologic History: incision and drainage - Infectious Disease History Infectious Disease History: Reports: Chicken Pox - Past Surgical History HEENT Surgical History: Reports: Myringotomy w Tube(s), Oral Surgery Cardiovascular Surgical History: Reports: None Respiratory Surgical History: Reports: None GI Surgical History: Reports: Colonoscopy, Hernia, Inguinal Other GI Surgeries/Procedures: hemorrhoid removed, perirectal abcess with incision and drainage Female Surgical History: Reports: None Male Surgical History: Reports: None Endocrine Surgical History: Reports: None Neurological Surgical History: Reports: None Musculoskeletal Surgical History: Reports: ORIF, Other (See Below) Other Musculoskeletal Surgeries/Procedures:: right ankle surgery, left hand/wrist surgery Oncologic Surgical History: Reports: None Dermatological Surgical History: Reports: None - SUBSTANCE USE Tobacco Use Status *Q: Current Every Day Tobacco User Recreational Drug Use History: No - HOME MEDS Home Medications: Home Meds Desmopressin 0.2 mg PO DAILY 12/18/18 [History] Ibuprofen [Advil] 200 mg PO QID PRN 12/18/18 [History] Multivitamin [Multivitamins] 1 tab PO DAILY 12/18/18 [History] Albuterol Sulfate [Albuterol Sulfate Hfa] 2 puff INH Q4H PRN 08/12/20 [History] Furosemide [Lasix] 20 mg PO DAILY 08/12/20 [History] Loratadine [Claritin] 10 mg PO DAILY PRN 08/12/20 [History] - CURRENT (IN HOUSE) MEDS Current Meds: Current Medications Albuterol (Albuterol 0.083% 2.5 Mg/3 Ml Neb Soln) 2.5 mg NEB ONETIME PRN PRN Reason: preoperative Stop: 08/15/20 18:00 Lactated Ringer's (Ringers, Lactated) 1,000 mls @ 125 mls/hr IV ASDIRECTED SYED Stop: 08/15/20 23:00 Lidocaine/Sodium Bicarbonate (Lidocaine 1%/Sod Bicarbonate In Ns 8.4% 1 Ml Syringe) 0.25 ml IDERM ONETIME PRN PRN Reason: Prior to IV Start Stop: 08/15/20 18:00 Scopolamine (Scopolamine 1.5 Mg Transdermal Patch) 1.5 mg TRDERM ONETIME PRN PRN Reason: motion sickness Stop: 08/15/20 18:00 Sodium Chloride (Sodium Chloride 0.9% 10 Ml Syringe) 10 ml FLUSH ASDIRECTED PRN PRN Reason: Keep Vein Open Stop: 08/15/20 18:00
--- NOTE | 2020-08-15 12:40 | PCM.POSTAN ---
POST ANESTHESIA ASSESSMENT - MENTAL STATUS Mental Status: Somnolent, Other (mumbles) - VITAL SIGNS Vital Signs: Last Vital Signs Temp 98.1 F 08/15/20 12:33 Pulse 73 08/15/20 08:27 Resp 20 08/15/20 12:33 BP 143/74 H 08/15/20 12:33 Pulse Ox 91 L 08/15/20 12:33 - RESPIRATORY Respiratory Status: Respiratory Rate WNL, Airway Patent, O2 Saturation Stable, Supplemental Oxygen - CARDIOVASCULAR CV Status: Pulse Rate WNL, Blood Pressure Stable - GASTROINTESTINAL GI Status: No Symptoms - POST OP HYDRATION Hydration Status: Adequate & Stable
--- NOTE | 2020-08-15 13:53 | OR ---
DATE OF OPERATION: 08/15/2020 SURGEON: Elis Velasquez MD PREOPERATIVE DIAGNOSIS: Symptomatic umbilical hernia, incarcerated. POSTOPERATIVE DIAGNOSIS: Symptomatic umbilical hernia, incarcerated, not strangulated. OPERATION PERFORMED: Laparoscopic umbilical hernia repair with mesh. ESTIMATED BLOOD LOSS: 25 mL. ANESTHESIA: General endotracheal plus local anesthetic consisting of 1% lidocaine. COMPLICATIONS: None. PROSTHETIC: Strattice dual-coated mesh 11.4 cm in diameter. INDICATIONS AND CONSENT: Mr. Lopez is a 34-year-old male who has been having some umbilical pain for some time. This pain got worse. The patient came to my clinic. I evaluated him and noted that he has an incarcerated umbilical hernia. I offered him a repair. We discussed options including open or laparoscopic repair. I discussed with him that he maybe at low risk for surgical site infection with laparoscopic repair versus open repair. Therefore, I recommended laparoscopic repair for this gentleman. We discussed risks, benefits, and alternative and informed consent was obtained. DESCRIPTION OF PROCEDURE: The patient was taken to the operating room, placed in supine position, and padded appropriately. Then, general endotracheal anesthesia was induced. Preop antibiotics were given. Abdominal hair was clipped. Then, the abdomen was prepped and draped in the usual sterile fashion. We performed a formal time-out before we started the procedure. We began the procedure by injecting 1% lidocaine in the left upper quadrant. Stab incision was made. A Veress needle was placed. The abdomen was insufflated to 15 mmHg. Then, a 5 mm trocar with 5.0 scope was placed in the left lateral abdomen. Then, we inspected the abdomen. We noted that there was some omental fat going into the umbilical hernia, but there was no injury to trocar insertion or Veress needle insertion. Veress needle was removed. Then, another 5 mm trocar was placed in the left lower lateral abdomen. Then, the incarcerated omentum within the umbilical hernia was reduced. The incarcerated portion of omentum appeared to be hyperemic, but it was viable. Therefore, it was left in within the abdomen. Upon palpation of the site of the hernia, there appeared to be some fullness there, which was consistent with preperitoneal fat. This was not able to be reduced even after trying to pull it with graspers. Therefore, it was left in place. The peritoneum around the hernia was scored with cautery so as to stimulate inflammatory response for healing. At this point, the hernia was measured and was found to be about 2 cm. Decision was made to proceed with a primary closure. 0 Vicryl stitches were used to reapproximate the hernia defect transabdominally using Grant-Mihir device. Once this was done, 4.3 inch or 11.4 cm circular dual mesh was brought into the field. This was a Strattice mesh. It was marked such that the 4 quadrants were marked, and then 2-0 Prolene stay sutures were placed in each of those 4 quadrants. Then, the mesh was measured around the abdomen from the outside so that to outline where the mesh was going to lie and then where the stay sutures were going to be extruded. Once this was done, the mesh was ready to be placed into the abdomen. One 5 mm trocar was placed in the right lateral lower abdomen, and then the trocar was passed through one of the 5 mm trocars from the left side into the abdomen after being folded appropriately. Then, the stay sutures were grasped and externalized with Grant-Mihir device so that the mesh laid down snugly against the abdominal wall without any wrinkles. Then, the SorbaFix AbsorbaTack thread was used to secure the mesh additionally onto the abdominal wall in a double crown fashion. The mesh was viewed to be lying flat across and against the abdominal wall covering the hernia defect with good overlap. Once this was done, procedure was concluded. The abdomen was desufflated. Trocars removed. The 5 mm trocar sites were closed at the skin level with 0000 Monocryl. All the other stab incisions were closed with Dermabond, and Dermabond was placed across all the incisions. This marked the end of the procedure. At the end of the procedure, all instruments, sharps, and sponges were counted and found to be correct x2. The patient was extubated and taken to the PACU. The patient will recover and will be allowed to return home for continued recovery. The patient to be restricted in weight lifting not more than 20 pounds for 4 weeks. MMODAL /[id number] TRACY
== END | disposition home or self-care (01) ==
LOC: JD.SDS 08:20
PROVIDERS: ATTEND Surgery
DX: K42.0 Umbilical hernia with obstruction, without gangrene (principal); F17.210 Nicotine dependence, cigarettes, uncomplicated; Z98.890 Other specified postprocedural states; Z79.899 Other long term (current) drug therapy; E66.9 Obesity, unspecified; Z68.41 Body mass index [BMI] 40.0-44.9, adult
CPT/HCPCS: 49653; A9270; J0690; J1100; J1170; J1885; J2250; J2405; J2704; J2710; J3010; J3490; J7120; 00790; C1781

== ENCOUNTER 2021-11-17 15:49 | Emergency (ER) | payer BC ==
[2021-11-17] MEDS ORDERED: Sodium Chloride 0.9% 10 ML Syringe FLUSH PRN (18:04)
[2021-11-17] MEDS ORDERED: cefTRIAXone 2 GM in Sodium Chloride 0.9% 100 ML IV ONE (19:08)
== END 2021-11-17 20:20 | disposition home or self-care (01) ==
LOC: JD.ED 15:49
DX: L03.116 Cellulitis of left lower limb (principal); F17.210 Nicotine dependence, cigarettes, uncomplicated; E66.9 Obesity, unspecified; Z68.41 Body mass index [BMI] 40.0-44.9, adult; Z79.899 Other long term (current) drug therapy
CPT/HCPCS: 36415; 80053; 83605; 83735; 85025; 86140; 96365; 99283; J0696; J3490; 99284

== ENCOUNTER 2022-12-26 08:46 | Day surgery (SDC) | payer BC ==
[~2022-12-26 08:46] MED LIST changes: -Albuterol 0.083% 2.5 MG/3 ML Neb Soln NEB PRN; -Albuterol 6.7 GM Inhaler INH ONE; -Bupivacaine 0.5%/EPINEPHrine 1:200,000 50 ML MDV ONE; -Dexamethasone 4 MG/ML SDV ONE; -Glycopyrrolate 0.2 MG/ML SDV ONE; -HYDROmorphone 0.5 MG/0.5 ML Syringe IVPUSH PRN; -HYDROmorphone 0.5 MG/0.5 ML Syringe ONE; -Ketorolac 30 MG/ML SDV ONE; -Lactated Ringers 1,000 ML ONE; -Lidocaine 1% 4 ML ONE; -Lidocaine 1%/Sod Bicarbonate in NS 8.4% 1 ML Syringe IDERM PRN; -Midazolam 1 MG/ML 2 ML SDV ONE; -Ondansetron 4 MG/2 ML SDV IVPUSH PRN; -Ondansetron 4 MG/2 ML SDV ONE; -Propofol 200 MG/20 ML SDV ONE; -Rocuronium 50 MG/5 ML Vial ONE; -Scopolamine 1.5 MG Transdermal Patch TRDERM PRN; +Sodium Chloride 0.9% 10 ML Syringe FLUSH SCH; -ceFAZolin 1 GM Vial ONE; -fentaNYL 100 MCG/2 ML SDV IVPUSH PRN; -fentaNYL 100 MCG/2 ML SDV ONE; -fentaNYL 250 MCG/5 ML SDV ONE
[2022-12-26] MEDS ORDERED: Propofol 200 MG/20 ML SDV ONE ×4 (09:16→10:18)
[2022-12-26] MEDS ORDERED: Ondansetron 4 MG/2 ML SDV IVPUSH PRN (09:50)
[2022-12-26] MEDS ORDERED: Lidocaine 1% 2 ML ONE (10:17)
[2022-12-26] MEDS ORDERED: Midazolam 1 MG/ML 2 ML SDV ONE (10:17)
== END 2022-12-26 12:10 | disposition home or self-care (01) ==
LOC: JD.SDS 08:46
PROVIDERS: ATTEND Surgery
DX: Z12.11 Encounter for screening for malignant neoplasm of colon (principal); D12.5 Benign neoplasm of sigmoid colon; K51.90 Ulcerative colitis, unspecified, without complications; K64.9 Unspecified hemorrhoids; F17.210 Nicotine dependence, cigarettes, uncomplicated; E66.9 Obesity, unspecified; Z79.899 Other long term (current) drug therapy; Z88.1 Allergy status to other antibiotic agents; Z79.2 Long term (current) use of antibiotics; Z68.41 Body mass index [BMI] 40.0-44.9, adult
CPT/HCPCS: 45380; J2250; J2704; J7120; 00811; J3490